=== PATIENT | female | born 1960 | race Caucasian/White ===

== ENCOUNTER 2019-07-13 14:27 | Outpatient (CLI) | payer BC, SELFPAY ==
[2019-07-13] VITALS (10 sets, daily range): BP systolic 124–171; BP diastolic 49–83; PULSE 72–87; RESP 15–20; TEMP 36.4–37.1; O2SAT 94–100; BMI 32.8; BMI 33.3
--- NOTE | 2019-07-13 15:11 | ED_ITS ---
HPI - General Adult General: Chief complaint: General Medical Stated complaint: needs blood transfusion Time Seen by Provider: 07/13/19 15:10 [facility] ED PFSH: Statuses (acute, chronic, etc) shown below reflect problem list status as previously entered and may not be historically accurate Social History Smoking and tobacco status: never smoked Course ED course: Patient was directed to the hospital by her primary care doctor Dr. Polanco. She went to admitting first she was supposed to get transfused for blood. They did not have orders so she came to the emergency room to ask what to do next. She was triaged she denies having any imminent or emergent medical issue she just came solely to get her planned transfusion. I called and doctor Dr. Polanco he stated he had nothing that he felt she needed to be evaluated for and that it would be appropriate for her to receive blood in an outpatient setting and then discharged home with follow-up with him in 3 days. Talked with the patient confirmed with her that she had no pressing emergent needs and was feeling fine other than having been told she needed to have her blood transfused. We will go ahead and make arrangements for her to leave the emergency room and go to outpatient and have 2 units of blood transfused orders were written for Dr. Polanco for this. Patient was triaged in the emergency room and does not have any emergent needs at this time. Vital Signs: Vital signs: Vital Signs Temperature 97.6 F 07/13/19 14:31 Pulse Rate 87 07/13/19 14:31 Respiratory Rate 17 07/13/19 14:31 Blood Pressure 171/80 07/13/19 14:31 Pulse Oximetry 100 07/13/19 14:31 Discharge Plan Discharge Prescriptions: No Action metformin 850 mg Tablet 850 mg PO DAILY RF: 0 Zoloft 25 mg Tablet 12.5 mg PO DAILY RF: 0 lisinopril 5 mg Tablet 5 mg PO DAILY RF: 0 hydrochlorothiazide 25 mg Tablet 25 mg PO DAILY RF: 0 Novolog Flexpen U-100 Insulin 100 unit/mL (3 mL) Insulin Pen 50 unit SUBCUT QAM RF: 0 Novolog Flexpen U-100 Insulin 100 unit/mL (3 mL) Insulin Pen 30 unit SUBCUT QPM RF: 0 Coding Level of Care Code ED Starch Dumper for Elva Duque
[2019-07-13] MEDS: acetaminophen 325 mg Tablet 650 MG PO (17:41)
[2019-07-13] MEDS: diphenhydrAMINE 25 mg Capsule PO (17:42)
[2019-07-13 18:11] LABS: Glucose Point of Care 130 mg/dL (70-110)
[2019-07-13] MEDS: sodium chloride 0.9% 100 ML (18:45)
--- NOTE | 2019-07-13 22:57 | PC.NURSE ---
Patient wanting to go home says shes feeling better and will come back if not feeling well, doesnt want to stay longer and refused 2nd unit of RBCs.
--- NOTE | 2019-09-06 13:05 | W.ED.GENADLT ---
HPI - General Adult General: Chief complaint: General Medical Stated complaint: needs blood transfusion Time Seen by Provider: 07/13/19 15:10 History of Present Illness: HPI narrative: Patient was sent to the hospital for blood transfusion. I discussed with Dr. Polanco and the patient she does not wish to be seen in the emergency room Dr. Hurst intended to be seen in the emergency room she was moved at her request outpatients or blood was transfused per Dr. Polanco's instructions. 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 Hyperlipidemia associated with type 2 diabetes mellitus Surgical History (Updated 07/31/19 @ 18:19 by Surjit Dunbar MD) History of back surgery S/P cholecystectomy Social History Smoking and tobacco status: never smoked Course Vital Signs: Vital signs: Vital Signs Temperature 97.7 F 07/13/19 22:23 Pulse Rate 73 07/13/19 22:23 Respiratory Rate 15 07/13/19 22:23 Blood Pressure 164/83 07/13/19 22:23 Pulse Oximetry 94 07/13/19 21:23 MDM - General Adult Lab Data: Labs: Lab Results 07/13/19 07/13/19 Range/Units 15:48 18:06 POC Glucose 130 (70-110) mg/dL Blood Type A Positive Antibody Screen Negative Crossmatch See Detail Discharge Plan Discharge Patient Disposition: Placed in Observation Discharge Date/Time: 07/13/19 15:57 Coding Level of Care Code ED Urban Gardening Specialist for Elva Duque
== END 2019-07-13 23:00 | disposition home or self-care (01) ==
LOC: ER 15:10 → GILAB 15:49 → OPCSU 07-20 10:22
PROVIDERS: Emergency Provider Family Medicine; Family Provider Internal Medicine; PCP Family Medicine; Visit Provider Family Medicine
DX: D75.9 Disease of blood and blood-forming organs, unspecified (principal)
CPT/HCPCS: 12345; 36415; 36416; 36430; 82962; 86850; 86900; 99281; P9016

== ENCOUNTER 2019-08-24 08:47 | Outpatient (CLI) | payer BC, SELFPAY ==
--- NOTE | 2019-08-24 09:32 | ECG_ITS ---
NAME OF STUDY: EXERCISE SESTAMIBI STRESS TEST INDICATION: Chest Pain EXERCISE DATA: The patient was exercised by Willis protocol. Baseline heart rate was 73 beats per minute. Baseline blood pressure was 197/86 millimeters of mercury. Target heart rate was 161 beats per minute. Maximum heart rate achieved was 152, which was 94 % of the target heart rate. Maximum blood pressure was 237/86 millimeters of mercury. Total exercise time was 4 minutes 30 seconds. Maximum METs achieved was 7, maximum VO2 was 24.5. The reason for ending the test was maximum effort achieved. The patient complained of shortness of breath during the stress test, which then resolved at the end of the test. ELECTROCARDIOGRAM: BASELINE: Sinus rhythm, normal axis, no significant ST-T changes at the baseline noted. EXERCISE: At the peak exercise level, 1.[address]-T changes suggestive of ischemia noted. RECOVERY: During the recovery period, heart rate dropped appropriately. Inferolateral ST depression normalized after 8 minutes CONCLUSION: 1. Exercise capacity poor. 2. Heart rate response was appropriate. 3. Blood pressure response was hypertensive. 4. Symptoms not suggestive of ischemia. 5. Electrocardiogram portion of the stress test was suggestive of ischemia. Electronically Signed On 08-31-2019 19:00:06 [employer] by Surjit Dunbar M.D. [email or web address]
--- NOTE | 2019-08-24 09:34 | NMCV_ITS ---
NM yakov perf SPECT r/s* [id number] Christiane Deluca Age: 58 Gender: F : 1960 Exam Date: 08/24/2019 10:28 Ordering Phys: Surjit Dunbar MD ([email or web address]) Technologist: BRAN Kline Exam Location: [facility] Indications: Chest pain STRESS TEST Please see separate stress test report in [facility] for full findings IMAGE PROTOCOL Rest/Stress 1 Exercise Day Radiopharmaceutical Dose (mCi) Administration Site Administered by Rest: Tc-99m 10.6 IV BRAN Kline Sestamibi Stress:Tc-99m 32.9 IV BRAN Kline Sestamideana Rest: 24-Aug-2019 60 Discovery 630 Stress: 24-Aug-2019 30 Discovery 630 Radiopharmaceutical was injected at 87% maximum heart rate. Images obtained in supine and prone position. SPECT RESULTS Technical Quality: Excellent Raw Data Analysis: Breast attenuation Image Corrections: No attenuation or motion correction applied Summed Stress Score: 1 Summed Rest Score: 0 Summed Difference Score: 1 PERFUSION FINDINGS SPECT images demonstrate homogeneous tracer distribution throughout the myocardium. FUNCTIONAL RESULTS (calculated via Gated SPECT) Stress Image LV EF (%): 57 Stress EDV (mL):87 TID: 1.08 Stress ESV (mL):37 Rest Image LV EF (%): 57 FUNCTIONAL FINDINGS: There is normal left ventricular systolic function. IMPRESSIONS Myocardial perfusion imaging is normal and low probability for obstructive coronary artery disease. EKG segment will be documented separately. Surjit Dunbar MD (Electronically Signed) Final Date: 24 August 2019 15:02 S
[2019-08-24 09:35] VITALS: BMI 34.9
[2019-08-24 13:31] VITALS: BP 178/78; PULSE 87
== END 2019-08-24 08:48 | disposition home or self-care (01) ==
PROVIDERS: Family Provider Internal Medicine; PCP Family Medicine; Visit Provider Internal Medicine Cardiovascular Disease
DX: R06.02 Shortness of breath (principal); R07.9 Chest pain, unspecified
CPT/HCPCS: 78452; 93017; A9500

== ENCOUNTER 2020-04-22 21:08 | Emergency (ER) | payer BC, SELFPAY ==
[2020-04-22 21:12] VITALS: BP 185/83; PULSE 70; RESP 18; TEMP 36.5; O2SAT 94; BMI 34.5
--- NOTE | 2020-04-22 21:14 | XRR_ITS ---
PROCEDURE INFORMATION: Exam: XR Chest, 1 View Exam date and time: 04/22/2020 10:00 PM Age: 59 years old Clinical indication: Other: N/v; Patient HX: Vertigo, earache TECHNIQUE: Imaging protocol: XR of the chest Views: Frontal portable upright view of the chest. COMPARISON: No relevant prior studies available. FINDINGS: Lungs: Left medial basilar infiltrate/atelectasis partially obscuring the distal descending thoracic aorta and adjacent bronchovascular markings. The lungs are otherwise clear bilaterally. The pulmonary vasculature is normal. Pleural space: No pleural effusion. No pneumothorax. Heart/Mediastinum: The heart is normal in size and contour. Bones/joints: No acute chest wall abnormality identified. XR/XR chest 1V portable [id number] IMPRESSION: Left medial basilar infiltrate/atelectasis. Pneumonitis is difficult to exclude. Clinical correlation is recommended.
--- NOTE | 2020-04-22 21:15 | ED_ITS ---
HPI - General Adult General: Chief complaint: Nausea/Vomiting/Diarrhea Stated complaint: VERTIGO Time Seen by Provider: 04/22/20 21:14 History of Present Illness: HPI narrative: Presents via ambulance with complaints about nausea vomiting started 190 sarina said her blood sugar is 450. She missed her insulin dose yesterday. She does not follow diabetic diet. Says she had this happen once for when her sugar got really high a few years ago. MD complaint: Upper glycemia with nausea and vomiting. Onset (ago): hour(s) Associated symptoms: Reports no associated symptoms, nausea and vomiting; Deny chest pain, dyspnea, headache(s) or rash Review of Systems Const: Denies: fever(s), chills or body aches Eyes: Denies: change in vision or blurry vision ENMT: Denies: throat pain or nasal congestion Card: Denies: chest pain or dyspnea on exertion Resp: Denies: dyspnea, productive cough or non-productive cough GI: Reports: nausea and vomiting; Denies: abdominal pain Musc: Denies: extremity pain Skin/Breast: Denies: rash Neuro: Denies: headache(s) Psych: Denies: anxiety or depression Barry/Lymph: Denies: easy bruising PFSH ED PFSH: Medical History (Updated 04/23/20 @ 01:24 by CARLOZ Yousif) Diabetes mellitus 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 Hyperlipidemia associated with type 2 diabetes mellitus Surgical History (Updated 07/31/19 @ 18:19 by Surjit Dunbar MD) History of back surgery S/P cholecystectomy Family History Father PVD (peripheral vascular disease) Brother Cancer Colon Other Diabetes Social History Smoking and tobacco status: never smoked Physical Exam Const: COMMON NORMALS: no acute distress, average body habitus and patient oriented x3 HENMT: COMMON NORMALS: normocephalic HEAD & SCALP: normal to inspection and normocephalic FACE & SINUS: normal facial exam Eye: COMMON NORMALS: conjunctivae normal GENERAL EYE: appearance normal, both eyes and all related structures CONJUNCTIVA: Yes conjunctivae normal Neck/C-Spine: COMMON NORMALS: no JVD Chest: COMMONS NORMALS: normal inspection of the chest Resp: COMMON NORMALS: normal respiratory effort and clear to auscultation bilaterally AUSCULTATION: clear to auscultation bilaterally Cardio: COMMON NORMALS: no JVD, regular rate and regular rhythm RATE: regular rate RHYTHM: regular rhythm GI: COMMON NORMALS: Normal to inspection, nondistended, normoactive bowel sounds present Extremity: COMMON NORMALS: normal to inspection and full ROM Neuro: COMMON NORMALS: patient oriented x3 Course Vital Signs: Vital signs: Vital Signs Temperature 97.7 F 04/22/20 21:12 Pulse Rate 72 04/23/20 01:11 Respiratory Rate 16 04/23/20 01:11 Blood Pressure 174/90 04/23/20 01:11 Pulse Oximetry 96 04/23/20 01:11 MDM - General Adult MDM Narrative: Medical decision making narrative: Discussed case with Dr. Roldan after ABG was returned. Written 2 bags of fluids and rechecked BMP patient is improved significantly good to go home discussed case with Dr. De Souza Lab Data: Labs: Lab Results 04/22/20 04/22/20 04/22/20 Range/Units 21:17 21:40 21:40 WBC 13.3 H (4.0-10.0) 10^3/ uL RBC 3.97 L (4.1-5.3) 10^6/u L Hgb 11.5 (11.5-15.3) g/dL Hct 36.0 L (37.0-47.0) % MCV 90.7 (81-99) fL MCH 29.0 (28.0-34.0) pg MCHC 31.9 (30.0-36.0) g/dL RDW 12.5 (12.1-15.1) % Plt Count 324 (130-400) 10^3/c mm MPV 8.8 (7.4-10.4) fL Neut % (Auto) 69.8 % Lymph % (Auto) 21.2 % [place] % (Auto) 5.3 % Eos % (Auto) 2.2 % Baso % (Auto) 0.6 % Neut # (Auto) 9.30 H (1.8-7.7) 10^3/u L Lymph # (Auto) 2.8 (0.8-4.8) 10^3/u L [place] # (Auto) 0.7 (0.2-0.9) 10^3/u L Eos # (Auto) 0.3 (0.0-0.8) 10^3/u L Baso # (Auto) 0.1 (0.0-0.1) 10^3/u L Nucleated RBC % (a uto) 0 % Nucleated RBCs # 0.0 /100WBC Specimen Type Sample Site ABG pH (7.35-7.45) ABG pCO2 (35-45) mmHg ABG pO2 (80.0-100.0) mmH g ABG HCO3 (22-26) mmol/L ABG Base Excess (-2.0-2.0) mmol/ L Neymar Test Hematocrit (37-47) % Operator Cavity Pump ID Sodium 135 L (136-145) mmol/L Potassium 4.1 (3.5-5.1) mmol/L Chloride 103 (98-107) mmol/L Carbon Dioxide 16 L (22-29) mmol/L Anion Gap 20.1 H (5-19) BUN 36 H (8-23) mg/dL Creatinine 1.5 H (0.5-0.9) mg/dL GFR Calculation 35.4 L (90-130) mL/min Glucose 407 H (65-115) mg/dL POC Glucose 373 (70-110) mg/dL Calculated Osmolal ity 305 H (285-295) mOsm/k g Calcium 10.3 (8.5-10.5) mg/dL Total Bilirubin 0.2 (0.15-1.2) mg/dL AST 15 (0-32) U/L ALT 17 (0-33) U/L Alkaline Phosphata se 66 (35-105) IU/L Total Protein 7.6 (6.6-8.7) g/dL Albumin 4.5 (3.5-5.2) g/dL Globulin 3.1 (1.3-4.6) g/dL Lipase 61 H (13-60) U/L Urine Color (Yellow) Urine Appearance (CLEAR) Urine pH (5-7) Ur Specific Gravit y (1.005-1.030) Urine Protein (Negative) Urine Glucose (UA) (Normal) Urine Ketones (Negative) Urine Blood (Negative) Urine Nitrate (Negative) Urine Bilirubin (Negative) Urine Urobilinogen (Negative) mg/dL Ur Leukocyte Kristine ase (Negative) Urine RBC (0-2) /hpf Urine WBC (0-5) /hpf Ur Squamous Epith Cells (0-5) /hpf Amorphous Sediment Urine Bacteria (NONE) /hpf Serum Ketones Negative (Negative) 04/22/20 04/22/20 04/22/20 Range/Units 21:50 22:10 22:30 WBC (4.0-10.0) 10^3/ uL RBC (4.1-5.3) 10^6/u L Hgb (11.5-15.3) g/dL Hct (37.0-47.0) % MCV (81-99) fL MCH (28.0-34.0) pg MCHC (30.0-36.0) g/dL RDW (12.1-15.1) % Plt Count (130-400) 10^3/c mm MPV (7.4-10.4) fL Neut % (Auto) % Lymph % (Auto) % [place] % (Auto) % Eos % (Auto) % Baso % (Auto) % Neut # (Auto) (1.8-7.7) 10^3/u L Lymph # (Auto) (0.8-4.8) 10^3/u L [place] # (Auto) (0.2-0.9) 10^3/u L Eos # (Auto) (0.0-0.8) 10^3/u L Baso # (Auto) (0.0-0.1) 10^3/u L Nucleated RBC % (a uto) % Nucleated RBCs # /100WBC Specimen Type Arterial Sample Site Radial, left ABG pH 7.28 L (7.35-7.45) ABG pCO2 37.4 (35-45) mmHg ABG pO2 66.7 L (80.0-100.0) mmH g ABG HCO3 17.4 L (22-26) mmol/L ABG Base Excess -8.7 L (-2.0-2.0) mmol/ L Neymar Test Pos Hematocrit 35.9 L (37-47) % Operator Cavity Pump ID ellpe Sodium (136-145) mmol/L Potassium (3.5-5.1) mmol/L Chloride (98-107) mmol/L Carbon Dioxide (22-29) mmol/L Anion Gap (5-19) BUN (8-23) mg/dL Creatinine (0.5-0.9) mg/dL GFR Calculation (90-130) mL/min Glucose (65-115) mg/dL POC Glucose 341 (70-110) mg/dL Calculated Osmolal ity (285-295) mOsm/k g Calcium (8.5-10.5) mg/dL Total Bilirubin (0.15-1.2) mg/dL AST (0-32) U/L ALT (0-33) U/L Alkaline Phosphata se (35-105) IU/L Total Protein (6.6-8.7) g/dL Albumin (3.5-5.2) g/dL Globulin (1.3-4.6) g/dL Lipase (13-60) U/L Urine Color Yellow (Yellow) Urine Appearance Clear (CLEAR) Urine pH 6 (5-7) Ur Specific Gravit y 1.010 (1.005-1.030) Urine Protein 1+ H (Negative) Urine Glucose (UA) 4+ H (Normal) Urine Ketones Negative (Negative) Urine Blood Neg (Negative) Urine Nitrate Negative (Negative) Urine Bilirubin Neg (Negative) Urine Urobilinogen Norm (Negative) mg/dL Ur Leukocyte Kristine ase Negative (Negative) Urine RBC Rare (0-2) /hpf Urine WBC Rare (0-5) /hpf Ur Squamous Epith Cells 0-4 H (0-5) /hpf Amorphous Sediment Not Reportable Urine Bacteria R (NONE) /hpf Serum Ketones (Negative) 04/22/20 04/23/20 Range/Units 23:17 00:30 WBC (4.0-10.0) 10^3/ uL RBC (4.1-5.3) 10^6/u L Hgb (11.5-15.3) g/dL Hct (37.0-47.0) % MCV (81-99) fL MCH (28.0-34.0) pg MCHC (30.0-36.0) g/dL RDW (12.1-15.1) % Plt Count (130-400) 10^3/c mm MPV (7.4-10.4) fL Neut % (Auto) % Lymph % (Auto) % [place] % (Auto) % Eos % (Auto) % Baso % (Auto) % Neut # (Auto) (1.8-7.7) 10^3/u L Lymph # (Auto) (0.8-4.8) 10^3/u L [place] # (Auto) (0.2-0.9) 10^3/u L Eos # (Auto) (0.0-0.8) 10^3/u L Baso # (Auto) (0.0-0.1) 10^3/u L Nucleated RBC % (a uto) % Nucleated RBCs # /100WBC Specimen Type Sample Site ABG pH (7.35-7.45) ABG pCO2 (35-45) mmHg ABG pO2 (80.0-100.0) mmH g ABG HCO3 (22-26) mmol/L ABG Base Excess (-2.0-2.0) mmol/ L Neymar Test Hematocrit (37-47) % Operator Cavity Pump ID Sodium 135 L (136-145) mmol/L Potassium 4.3 (3.5-5.1) mmol/L Chloride 106 (98-107) mmol/L Carbon Dioxide 16 L (22-29) mmol/L Anion Gap 17.3 (5-19) BUN 31 H (8-23) mg/dL Creatinine 1.2 H (0.5-0.9) mg/dL GFR Calculation 45.8 L (90-130) mL/min Glucose 259 H (65-115) mg/dL POC Glucose 285 (70-110) mg/dL Calculated Osmolal ity 295 (285-295) mOsm/k g Calcium 9.8 (8.5-10.5) mg/dL Total Bilirubin (0.15-1.2) mg/dL AST (0-32) U/L ALT (0-33) U/L Alkaline Phosphata se (35-105) IU/L Total Protein (6.6-8.7) g/dL Albumin (3.5-5.2) g/dL Globulin (1.3-4.6) g/dL Lipase (13-60) U/L Urine Color (Yellow) Urine Appearance (CLEAR) Urine pH (5-7) Ur Specific Gravit y (1.005-1.030) Urine Protein (Negative) Urine Glucose (UA) (Normal) Urine Ketones (Negative) Urine Blood (Negative) Urine Nitrate (Negative) Urine Bilirubin (Negative) Urine Urobilinogen (Negative) mg/dL Ur Leukocyte Kristine ase (Negative) Urine RBC (0-2) /hpf Urine WBC (0-5) /hpf Ur Squamous Epith Cells (0-5) /hpf Amorphous Sediment Urine Bacteria (NONE) /hpf Serum Ketones (Negative) Discharge Plan Discharge Patient Disposition: Home Clinical Impression: Acute hyperglycemia Condition: Stable Prescriptions: No Action ferrous sulfate 325 mg (65 mg iron) tablet 325 mg PO QDAY RF: 0 cetirizine [24Hour Allergy] 10 mg tablet 10 mg PO QDAY RF: 0 multivitamin Tablet 1 tab PO QAM RF: 0 flaxseed oil 1,000 mg capsule 1,000 mg PO QDAY RF: 0 omega-3 fatty acids 1,000 mg capsule 1,000 mg PO QDAY RF: 0 acetaminophen [Tylenol] 325 mg tablet 650 mg PO Q6H PRNRF: 0 isosorbide mononitrate 30 mg tablet extended release 24 hr 15 mg PO BID 30 Days Qty: 30 RF: 6 simvastatin 20 mg tablet 20 mg PO QDAY 30 Days Qty: 30 RF: 6 metformin 850 mg Tablet 850 mg PO DAILY RF: 0 hydrochlorothiazide 25 mg Tablet 25 mg PO DAILY RF: 0 Novolog Flexpen U-100 Insulin 100 unit/mL (3 mL) Insulin Pen 50 unit SUBCUT QAM RF: 0 Novolog Flexpen U-100 Insulin 100 unit/mL (3 mL) Insulin Pen 30 unit SUBCUT QPM RF: 0 Zoloft 25 mg tablet 50 mg PO DAILY RF: 0 lisinopril 5 mg tablet 10 mg PO DAILY RF: 0 Discharge Orders: Discharge Order (Routine); Ordered 04/23/20 Ordered By: James Luna Referrals: Stephane Reddy MD [Family Provider] - Balbir Pereyra DO [Primary Care Provider] - Discharge Diet: Diabetic Discharge Activity: Increase activity as tolerated Patient Instructions: Hyperglycemia Activity Restrictions/Additional Instructions: Follow-up with medical provider as directed. Take medications as prescribed. Return to the ER or your medical provider if condition worsens. Please read and understand discharge instructions. If any questions ask please. Coding Level of Care Code ED Commercial Construction Estimator for Elva Fwd Exam Comprehensive
[2020-04-22 21:16] VITALS: BP 185/83; PULSE 102; RESP 22; O2SAT 96
[2020-04-22 21:24] LABS: Glucose Point of Care 373 mg/dL (70-110)
[2020-04-22] MEDS: sodium chloride 0.9% 1,000 ML 999 ML IV ×2 (21:26→23:30)
[2020-04-22] MEDS: ondansetron 2 mg/ML SDV 2 mL 8 MG IVP (21:26)
[2020-04-22 21:58] LABS: ABG PCO2 37.4 mmHg (35-45); ABG PH Result 7.28 (7.35-7.45); Arterial Blood Gas Hematocrit 35.9 % (37-47); Base Excess ABG -8.7 mmol/L (-2.0-2.0); Blood Gas Allen Test Pos; Blood Gas Sample Site Radial, left; Blood Gas Sample Type Arterial; HCO3 ABG 17.4 mmol/L (22-26); PO2 ABG 66.7 mmHg (80.0-100.0)
[2020-04-22 22:02] LABS: Basophils # 0.1 10^3/uL (0.0-0.1); Basophils % 0.6 %; Eosinophils # 0.3 10^3/uL (0.0-0.8); Eosinophils % 2.2 %; Hemoglobin 11.5 g/dL (11.5-15.3); Lymphocytes # 2.8 10^3/uL (0.8-4.8); Lymphocytes % 21.2 %; Mean Corpuscular HGB Conc 31.9 g/dL (30.0-36.0); Mean Corpuscular Volume 90.7 fL (81-99); Mean Platelet Volume 8.8 fL (7.4-10.4); Monocytes # 0.7 10^3/uL (0.2-0.9); Monocytes % 5.3 %; Neutrophils % 69.8 %; Nucleated Red Blood Cells % 0 %; Platelet Count 324 10^3/cmm (130-400); Red Blood Count 3.97 10^6/uL (4.1-5.3); Red Cell Distribution Width 12.5 % (12.1-15.1); White Blood Count 13.3 10^3/uL (4.0-10.0)
[2020-04-22 22:16] VITALS: BP 204/79; PULSE 76; RESP 20; O2SAT 99
[2020-04-22 22:25] LABS: Alanine Aminotransferase 17 U/L (0-33); Albumin Level 4.5 g/dL (3.5-5.2); Alkaline Phosphatase 66 IU/L (35-105); Aspartate Amino Transferase 15 U/L (0-32); Calcium 10.3 mg/dL (8.5-10.5); Chloride 103 mmol/L (98-107); Globulin 3.1 g/dL (1.3-4.6); Potassium 4.1 mmol/L (3.5-5.1); Total Bilirubin 0.2 mg/dL (0.15-1.2); Total Protein 7.6 g/dL (6.6-8.7)
[2020-04-22 22:33] LABS: Ketone (Acetest) Serum Negative (Negative)
[2020-04-22 22:35] LABS: Anion Gap 20.1 (5-19); Blood Urea Nitrogen 36 mg/dL (8-23); Carbon Dioxide 16 mmol/L (22-29); Glomerular Filtration Rate 35.4 mL/min (90-130); Glucose 407 mg/dL (65-115); Lipase 61 U/L (13-60); Osmolality Calculated 305 mOsm/kg (285-295); Sodium 135 mmol/L (136-145)
[2020-04-22 22:35] LABS: Glucose Point of Care 341 mg/dL (70-110)
[2020-04-22 22:42] LABS: Add Urine Microscopic? YES; Bacteria Urine R /hpf; Bilirubin Urine Neg (Negative); Blood Urine Neg (Negative); Glucose Urine UA 4+ (Normal); Ketones Urine Negative (Negative); Leukocyte Esterase Urine Negative (Negative); Nitrate Urine Negative (Negative); Protein Urine 1+ (Negative); RBC Urine RARE /hpf (0-2); Squamous Epithelial Cell Urine 0-4 /hpf (0-5); Urine Appearance Clear (CLEAR); Urine Color Yellow (Yellow); Urobilinogen Urine Norm (Negative); WBC Urine RARE /hpf (0-5); pH Urine 6 (5-7)
[2020-04-22 23:08] VITALS: BP 174/101; PULSE 74; RESP 18; O2SAT 96
[2020-04-22 23:20] LABS: Glucose Point of Care 285 mg/dL (70-110)
[2020-04-23 00:08] VITALS: BP 199/97; PULSE 80; RESP 18; O2SAT 98
[2020-04-23 01:05] LABS: Blood Urea Nitrogen 31 mg/dL (8-23); Calcium 9.8 mg/dL (8.5-10.5); Carbon Dioxide 16 mmol/L (22-29); Chloride 106 mmol/L (98-107); Glomerular Filtration Rate 45.8 mL/min (90-130); Glucose 259 mg/dL (65-115); Osmolality Calculated 295 mOsm/kg (285-295); Sodium 135 mmol/L (136-145)
[2020-04-23 01:11] VITALS: BP 174/90; PULSE 72; RESP 16; O2SAT 96
[2020-04-23 01:20] LABS: Anion Gap 17.3 (5-19); Potassium 4.3 mmol/L (3.5-5.1)
[2020-04-23 01:53] VITALS: BP 174/90; PULSE 86; RESP 18; O2SAT 95
--- NOTE | 2020-04-23 02:05 | PC.NURSE ---
agree with this assessment
== END 2020-04-23 02:05 | disposition home or self-care (01) ==
PROVIDERS: Emergency Provider Nurse Practitioner Family; Family Provider Internal Medicine; PCP Family Medicine
DX: E11.65 Type 2 diabetes mellitus with hyperglycemia (principal); Z79.4 Long term (current) use of insulin; E78.5 Hyperlipidemia, unspecified
CPT/HCPCS: 12345; 36416; 36600; 71045; 80048; 80053; 81001; 82009; 82803; 82962; 83690; 85025; 96361; 96372; 96374; 99282; 99284; J1815; J2405; J7030

== ENCOUNTER 2020-08-05 15:52 | Outpatient (CLI) | payer BC, SELFPAY ==
--- NOTE | 2020-08-05 16:13 | XRR_ITS ---
PROCEDURE INFORMATION: Exam: XR Left Ankle Exam date and time: 08/05/2020 4:14 PM Age: 59 years old Clinical indication: Pain; Ankle; Left; Additional info: Lt. Ankle pain TECHNIQUE: Imaging protocol: XR Left ankle. Views: 3 or more views. COMPARISON: No relevant prior studies available. FINDINGS: Bones/joints: Negative for acute bony abnormality Soft tissues: Normal. XR/XR ankle LT min 3V* [id number] IMPRESSION: No acute findings.
== END 2020-08-05 15:53 | disposition home or self-care (01) ==
PROVIDERS: PCP Family Medicine; Visit Provider Family Medicine
DX: M25.572 Pain in left ankle and joints of left foot (principal)
CPT/HCPCS: 73610

== ENCOUNTER 2021-02-04 12:30 | Outpatient (CLI) | payer BC, SELFPAY | END 2021-02-04 12:31 | disposition home or self-care (01) | LOC: SLEEP 02-05 12:20 | PROVIDERS: PCP Family Medicine; Visit Provider Family Medicine | DX: G47.33 Obstructive sleep apnea (adult) (pediatric) (principal) | CPT/HCPCS: G0399 ==

== ENCOUNTER 2021-04-17 15:21 | Outpatient (CLI) | payer BC, SELFPAY ==
--- NOTE | 2021-04-17 | US_ITS ---
WS: [id number] RENAL ULTRASOUND REASON FOR EXAM: 3B CHRONIC KIDNEY DISEASE TECHNIQUE: Grayscale and Doppler ultrasound examination of the kidneys. FINDINGS: Right kidney: Right kidney measures 11.2 cm x 5.3 cm x 5.5 cm. No mass, calculus, or hydronephrosis. Abundant renal sinus fibrolipomatosis. Renal parenchymal thickness 1.89 cm. Left kidney: Left kidney measures 11.3 cm x 4.8 cm x 5.3 cm. No mass, calculus, or hydronephrosis. Ab undant renal sinus fibrolipomatosis. Renal parenchymal thickness 1.38 cm. US/US renal BI* [id number] IMPRESSION: No significant abnormality identified.
== END 2021-04-17 15:22 | disposition home or self-care (01) ==
LOC: US 15:22
PROVIDERS: PCP Family Medicine; Visit Provider Registered Nurse
DX: N18.32 Chronic kidney disease, stage 3b (principal)
CPT/HCPCS: 76770

== ENCOUNTER → 2024-08-01 14:30 | Outpatient (BNVA) | payer MEDICAID, SELFPAY | PROVIDERS: PCP Family Medicine; Visit Provider Nurse Practitioner | DX: J98.11 Atelectasis (principal) | CPT/HCPCS: 71046 ==

== ENCOUNTER → 2024-10-16 09:48 | Outpatient (BNVA) | payer MEDICARE, SELFPAY | PROVIDERS: PCP Family Medicine; Visit Provider Family Medicine | DX: I10 Essential (primary) hypertension (principal); E11.69 Type 2 diabetes mellitus with other specified complication; E78.5 Hyperlipidemia, unspecified; E03.9 Hypothyroidism, unspecified | CPT/HCPCS: 80053; 82306; 82607; 83036; 84443; 85025 ==

== ENCOUNTER → 2024-12-03 10:35 | Outpatient (BNVA) | payer MEDICARE, SELFPAY | PROVIDERS: PCP Family Medicine; Visit Provider Family Medicine | DX: N28.9 Disorder of kidney and ureter, unspecified (principal) | CPT/HCPCS: 80048 ==

== ENCOUNTER 2025-02-05 15:02 | Outpatient (CLI) | payer MEDICARE, SELFPAY ==
--- NOTE | 2025-02-05 15:15 | MR_ITS ---
WS: [id number] MRI CERVICAL SPINE NONCONTRAST TECHNIQUE: Sagittal T1, T2 and STIR imaging. Axial T2, gradient, and fiesta imaging. CLINICAL INFORMATION: M54.12 - Radiculopathy, cervical region COMPARISON: None. FINDINGS: Straightening of the normal cervical lordosis. Disc space narrowing worse at C5-6. C2-C3: Mild facet arthropathy. Uncovertebral joint hypertrophy. C3-C4: Disc osteophyte complex with endplate ridging. Mild uncovertebral joint hypertrophy. Mild facet arthropathy. Moderate LEFT bony foraminal narrowing. C4-C5: Disc osteophyte complex with endplate ridging. Moderate LEFT bony foraminal narrowing. Spinal canal is patent. Mild facet arthropathy. C5-C6: Slight retrolisthesis. Disc osteophyte complex with a central protrusion. Mild central canal stenosis with indentation on the cervical cord. Uncovertebral joint hypertrophy. Moderate bilateral bony foraminal narrowing. C6-C7: Small central disc osteophyte protrusion. Slight effacement of the ventral thecal sac. Spinal canal and foramen are patent. C7-T1: No significant disc bulging. Spinal canal and foramen are patent. Visualized brain stem structures: Normal. Prevertebral soft tissues: Normal. MR/MR cervical spin wo con* [id number] IMPRESSION: 1. Straightening of the normal cervical lordosis. 2. Slight retrolisthesis C5 on C6. 3. Central disc osteophyte protrusion C5-C6 with mild central canal stenosis a nd slight contact of the cervical cord. 4. Multilevel moderate bony foraminal narrowing worse at LEFT C3-4, LEFT C4-5, and bilateral C5-6
== END 2025-02-05 15:03 | disposition home or self-care (01) ==
PROVIDERS: PCP Family Medicine; Visit Provider Family Medicine
DX: M47.22 Other spondylosis with radiculopathy, cervical region (principal); M48.02 Spinal stenosis, cervical region; M25.78 Osteophyte, vertebrae
CPT/HCPCS: 72141

== ENCOUNTER 2025-03-11 10:05 | Outpatient (RCR) | payer MEDICARE, SELFPAY | END 2025-04-02 23:59 | disposition home or self-care (01) | LOC: SPT 10:05 | PROVIDERS: PCP Family Medicine; Visit Provider Family Medicine | DX: M54.12 Radiculopathy, cervical region (principal) | CPT/HCPCS: 97110; 97161 ==

== ENCOUNTER 2025-04-03 05:00 | Outpatient (RCR) | payer MEDICARE, SELFPAY | END 2025-04-16 14:19 | disposition home or self-care (01) | LOC: SPT 05:00 | PROVIDERS: PCP Family Medicine; Visit Provider Family Medicine | DX: M54.12 Radiculopathy, cervical region (principal) | CPT/HCPCS: 97110 ==

== ENCOUNTER 2025-04-10 12:21 | Outpatient (CLI) | payer MEDICARE, SELFPAY ==
--- NOTE | 2025-04-10 12:25 | US_ITS ---
WS: [id number] RENAL ULTRASOUND HISTORY: STAGE 3B CHRONIC KIDNEY DZ COMPARISON: 04/17/2021 TECHNIQUE: 2-D and color Doppler imaging of the kidney submitted. Right kidney: 9.9 cm x 4.4 cm x 6.2 cm. Cortex: 1.3 cm Kidney is measuring slightly smaller in size as compared to the prior study. There is increased echogenicity throughout the kidney and mild cortical thinning. No obstruction. Tiny cortical cyst mid kidney 1.4 x 1.4 x 1.8 cm. Left kidney: 11.3 cm x 5.5 cm x 6.6 cm. Cortex: 1.8 cm Normal size kidney. Mild increased echogenicity is new. No obstruction or mass. Aorta: Normal. Urinary Bladder: Normal distention. US/US renal BI* [id number] IMPRESSION: 1. No hydronephrosis. 2. Mild chronic medical renal disease has developed since 04/17/2021. 3. RIGHT kidney is measuring slightly small in size as compared to the prior s tudy. Kidney is decreased in length from 11.2 cm to 9.9 cm.
== END 2025-04-10 12:22 | disposition home or self-care (01) ==
LOC: RAD 12:21
PROVIDERS: PCP Family Medicine; Visit Provider Registered Nurse
DX: N18.32 Chronic kidney disease, stage 3b (principal); N27.0 Small kidney, unilateral
CPT/HCPCS: 76770

== ENCOUNTER → 2025-06-18 13:20 | Outpatient (BNVA) | payer MEDICARE, SELFPAY | PROVIDERS: PCP Family Medicine; Visit Provider Family Medicine | DX: N28.9 Disorder of kidney and ureter, unspecified (principal); E11.69 Type 2 diabetes mellitus with other specified complication; E78.5 Hyperlipidemia, unspecified; R06.00 Dyspnea, unspecified; R00.2 Palpitations; E03.9 Hypothyroidism, unspecified | CPT/HCPCS: 80048; 80053; 80061; 83036; 84443; 85025 ==